=== PATIENT | male | born 1990 | race Caucasian/White ===

== ENCOUNTER 2021-05-24 23:23 | Emergency (ER) | payer OTHER ==
[~2021-05-24] VITALS: Ht 188 cm; Wt 104.3 kg
[2021-05-25] MEDS ORDERED: ALBUAER3 IN (01:44)
[2021-05-25] MEDS ORDERED: BENZ100C19 PO (01:44)
[2021-05-25 04:36] VITALS: BP 148/99
== END 2021-05-25 02:34 | disposition home or self-care (01) ==
LOC: ER 23:26
DX: J06.9 Acute upper respiratory infection, unspecified (principal); Z20.822 Contact with and (suspected) exposure to COVID-19
CPT/HCPCS: 36415; 71045; 87426